=== PATIENT | female | born 2000 | race Hispanic/Latino ===

== ENCOUNTER 2025-01-09 18:47 | Emergency (ER) | payer BC, OTHER ==
--- NOTE | 2025-01-09 19:08 | ER ---
Nurse's Notes [facility] Name: Miranda Holcomb Age: 24 yrs Sex: Female : 2000 Arrival Date: 01/09/2025 Time: 18:47 Bed IW1 Private MD: Diagnosis: Pain in right wrist Presentation: 01/09 19:00 Chief complaint: Patient states: she has been having a burning sensation in her right ap3 wrist since approx 10:00 this morning. Coronavirus screen: At this time, the client does not indicate any symptoms associated with coronavirus-19. Ebola Screen: No symptoms or risks identified at this time. Initial Sepsis Screen: Does the patient meet any 2 criteria? No. Patient's initial sepsis screen is negative. Does the patient have a suspected source of infection? No. Patient's initial sepsis screen is negative. Risk Assessment: Do you want to hurt yourself or someone else? Patient reports no desire to harm self or others. Onset of symptoms was January 09, 2025 at 10:00. 19:00 Method Of Arrival: Ambulatory ap3 19:02 Acuity: TIFFANIE 4 ap3 Triage Assessment: 19:01 General: Appears in no apparent distress. Behavior is calm, cooperative, appropriate ap3 for age. Pain: Complains of pain in right wrist Pain currently is 8 out of 10 on a pain scale. Pain began 10:00 this morning. Neuro: Level of Consciousness is awake, alert, obeys commands, Oriented to person, place, time, situation, Appropriate for age. Cardiovascular: Patient's skin is warm and dry. Respiratory: Airway is patent Respiratory effort is even, unlabored, Respiratory pattern is regular, symmetrical. 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 - Social history:: Smoking status: Patient denies any tobacco usage or history of. Screenin:03 Abuse screen: Denies threats or abuse. Nutritional screening: No deficits noted. ap3 Tuberculosis screening: No symptoms or risk factors identified. 19:09 [facility] ED Fall Risk Assessment (Adult) History of falling in the last 3 months, ha1 including since admission No falls in past 3 months (0 pts) Confusion or Disorientation No (0 pts) Intoxicated or Sedated No (0 pts) Impaired Gait No (0 pts) Mobility Assist Device Used No (0 pt) Altered Elimination Score/Fall Risk Level 0 - 2 = Low Risk Oriented to surroundings, Maintained a safe environment, Educated pt \T\ family on fall prevention, incl call for assistance when getting out of bed. Vital Signs: 19:02 BP 119 / 67; Pulse 87; Resp 17; Temp 97.6; Pulse Ox 100% ; Weight 77.11 kg; Height 5 ap3 ft. 3 in. ; Pain 8/10; 19:02 Body Mass Index 30.11 (77.11 kg, 160.02 cm) ap3 19:02 Pain Scale: Adult ap3 ED Course: 18:52 Patient arrived in ED. im 18:52 Bethanie Whitt FNP-C is [facility]. kb 18:52 Zhen Fletcher MD is Attending Physician. kb 19:02 Triage completed. ap3 19:03 Arm band placed on right wrist. ap3 19:09 No provider procedures requiring assistance completed. Patient did not have IV access ha1 during this emergency room visit. 19:10 Patient has correct armband on for positive identification. Provided Education on: ha1 follow ups . Administered Medications: No medications were administered Medication: 19:10 VIS not applicable for this client. ha1 Outcome: 19:07 Discharge ordered by . kb 19:09 Discharged to home ambulatory, ha1 19:09 Condition: stable 19:09 Discharge instructions given to patient, Instructed on discharge instructions, follow up and referral plans. Demonstrated understanding of instructions, follow-up care, 19:10 Patient left the ED. ha1 Signatures: Bethanie Whitt FNP-C FNP-Ckb Prokisch, Amanda RN RN ap3 Latosha Malloy, SHAHEEN RN ha1 Dawn Ya im
--- NOTE | 2025-01-09 19:08 | EDPHYS ---
Physician Documentation [facility] Name: Miranda Holcomb Age: 24 yrs Sex: Female : 2000 Arrival Date: 01/09/2025 Time: 18:47 Bed IW1 Private MD: ED Physician Zhen Fletcher HPI: 01/09 19:04 This 24 yrs old Female presents to ER via Ambulatory with complaints of Arm Pain, 17 kb weeks . 19:04 Pt is a 24 year old female who presents for right wrist pain that started at 1000 this kb morning. Denies injury or trauma. States it is a burning pain that radiates up arm and to hand. . 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 - Social history:: Smoking status: Patient denies any tobacco usage or history of. ROS: 19:03 Constitutional: As per HPI kb Exam: 19:03 Constitutional: This is a well developed, well nourished patient who is awake, alert, kb and in no acute distress. Head/Face: Normocephalic, atraumatic. ENT: Moist Mucous membranes Cardiovascular: Regular rate Respiratory: Respirations even and unlabored. No increased work of breathing. Talking in full sentences Skin: Warm, dry with normal turgor. Normal color. Neuro: Awake and alert, GCS 15, oriented to person, place, time, and situation. 19:03 Musculoskeletal/extremity: Extremities: grossly normal except: noted in the right wrist: pain, ROM: intact in all extremities, Circulation is intact in all extremities. Sensation intact. Vital Signs: 19:02 BP 119 / 67; Pulse 87; Resp 17; Temp 97.6; Pulse Ox 100% ; Weight 77.11 kg; Height 5 ap3 ft. 3 in. ; Pain 8/10; 19:02 Body Mass Index 30.11 (77.11 kg, 160.02 cm) ap3 19:02 Pain Scale: Adult ap3 MDM: 18:52 Medical Screening Exam initiated kb 19:05 Differential diagnosis: tendonitis, sprain, carpal tunnel. Data reviewed: vital signs, kb nurses notes. Test considered but Not performed: X-ray: wrist xray considered but pt has had no injury or trauma, no bony tenderness. Counseling: I had a detailed discussion with the patient and/or guardian regarding the historical points, exam findings, and any diagnostic results supporting the discharge/admit diagnosis, the need for outpatient follow up, a orthopedic surgeon, to return to the emergency department if symptoms worsen or persist or if there are any questions or concerns that arise at home. 01/09 19:03 Order name: Wrist Splint; Complete Time: 19:09 kb Administered Medications: No medications were administered Disposition Summary: 01/09/25 19:07 Discharge Ordered Notes: Location: Home kb Condition: Stable kb Diagnosis - Pain in right wrist kb Followup: kb - With: Emergency Department - When: As needed - Reason: Worsening of condition Followup: kb - With: Private Physician - When: 2 - 3 days - Reason: Recheck today's complaints, Continuance of care, Re-evaluation by your physician Discharge Instructions: - Discharge Summary Sheet kb - Wrist Pain, Adult, [id number] kb - Carpal Tunnel Syndrome, [id number] kb Forms: - Medication Reconciliation Form kb - Antibiotic Education kb - Prescription Opioid Use kb - Patient Portal Instructions kb - Leadership Thank You Letter kb Signatures: Bethanie Whitt, ASSEMBLY ASSOCIATE-C EFRAIN-Lety Brown, RN RN ap3
[2025-01-10 01:28] VITALS: BP 119/67; TEMP 97.6; O2SAT 100
== END 2025-01-09 19:10 | disposition home or self-care (01) ==
LOC: ER 18:47
DX: O26.892 Other specified pregnancy related conditions, second trimester (principal); Z3A.17 17 weeks gestation of pregnancy
CPT/HCPCS: 99282